=== PATIENT | female | born 2000 | race African-American/Black ===

== ENCOUNTER 2018-01-18 18:13 | Emergency (ER) | payer BC ==
[~2018-01-18] VITALS: Ht 167.6 cm; Wt 81.7 kg
[2018-01-18 18:52] LABS: URINE BILIRUBIN NEGATIVE (Negative); URINE BLOOD 1+ (Negative); URINE CLARITY CLEAR; URINE COLOR YELLOW; URINE GLUCOSE-RANDOM* NEGATIVE (Negative); URINE KETONES 1+ (Negative); URINE LEUKOCYTES-REFLEX NEGATIVE (Negative); URINE NITRITE-REFLEX NEGATIVE (Negative); URINE PROTEIN (DIPSTICK) NEGATIVE (Negative); URINE SPECIFIC GRAVITY >= 1.030 (1.005-1.035); URINE UROBILINOGEN 0.2 E.U./dl (0.2-1.0)
[2018-01-18 18:56] LABS: ABSOLUTE NEUTROPHILS 11.5 thou/uL (1.4-8.2); BASOPHILS 0.2 % (0.0-2.0); HEMATOCRIT 37.3 % (37.0-47.0); HEMOGLOBIN 11.8 gm/dL (12.0-15.0); LYMPHOCYTES 12.6 % (24.0-44.0); MCH 25.7 pg (26.0-34.0); MCHC 31.7 g/dL (28.0-37.0); MCV 81.1 fL (80.0-100.0); PLATELET COUNT 305 thou/uL (150-400); POLYS 83.2 % (36.0-66.0); RDW 14.7 % (10.5-14.5); WBC 13.8 thou/uL (4.0-11.0)
[2018-01-18 19:03] LABS: BACTERIA-REFLEX None Seen /HPF (None Seen); CASTS None Seen /LPF (None Seen); CRYSTALS None Seen /LPF (None Seen); MUCUS 4-6 Moderate strn/LPF (None Seen); SQUAMOUS 0-3 Few /LPF (0-3); URINE RBC 3-10 Few /HPF (0-2); URINE WBC-REFLEX 0-5 Rare /HPF (0-5)
[2018-01-18 19:05] LABS: CALCIUM 9.1 mg/dL (8.5-10.1); CREATININE 1.2 mg/dL (0.6-1.0); POTASSIUM 3.7 mmol/L (3.5-5.1)
[2018-01-18 19:11] LABS: TOTAL BILIRUBIN 0.4 mg/dL (<0.1-1.0); TOTAL PROTEIN 8.4 g/dL (6.4-8.2)
[2018-01-18] MEDS ORDERED: NORCO 5-325 TA1 EACH PO (21:13)
[2018-01-18] MEDS ORDERED: FLOMAX0.4 MG PO (21:13)
[2018-01-18] MEDS ORDERED: ONDANSETRON HCL4 M2 PO (21:13)
== END 2018-01-18 21:41 | disposition home or self-care (01) ==
LOC: ER 18:13
PROVIDERS: Emergency Medicine
DX: N20.1 Calculus of ureter (principal)

== ENCOUNTER 2019-03-24 21:37 | Emergency (ER) | payer BC ==
[~2019-03-24] VITALS: Ht 167.6 cm; Wt 72.6 kg
[~2019-03-24 21:37] MED LIST: FLOMAX0.4 MG PO; NORCO 5-325 TA1 EACH PO; ONDANSETRON HCL4 M2 PO
[2019-03-24 21:39] VITALS: BP 126/76
[2019-03-24] MEDS ORDERED: MOBIC15 MG PO (23:05)
[2019-03-24] MEDS ORDERED: VALIUM5 MG PO (23:05)
== END 2019-03-24 23:19 | disposition home or self-care (01) ==
LOC: ER 21:37
DX: S16.1XXA Strain of muscle, fascia and tendon at neck level, initial encounter (principal); J45.909 Unspecified asthma, uncomplicated; V49.49XA Driver injured in collision with other motor vehicles in traffic accident, initial encounter; Y93.89 Activity, other specified; Y92.89 Other specified places as the place of occurrence of the external cause; Y99.8 Other external cause status

== ENCOUNTER 2019-09-13 11:09 | Emergency (ER) | payer BC ==
[~2019-09-13] VITALS: Ht 167.6 cm; Wt 79.4 kg
[~2019-09-13 11:09] MED LIST changes: +MOBIC15 MG PO; +VALIUM5 MG PO
[2019-09-13 11:42] LABS: ABSOLUTE NEUTROPHILS 9.4 thou/uL (1.4-8.2); BASOPHILS 0.2 % (0.0-2.0); HEMATOCRIT 37.1 % (37.0-47.0); HEMOGLOBIN 11.7 gm/dL (12.0-15.0); LYMPHOCYTES 11.4 % (24.0-44.0); MCH 25.9 pg (26.0-34.0); MCHC 31.4 g/dL (28.0-37.0); MCV 82.5 fL (80.0-100.0); PLATELET COUNT 309 thou/uL (150-400); POLYS 84.4 % (36.0-66.0); RDW 14.7 % (10.5-14.5); WBC 11.2 thou/uL (4.0-11.0)
[2019-09-13 11:44] LABS: URINE BILIRUBIN NEGATIVE (Negative); URINE BLOOD 3+ (Negative); URINE GLUCOSE-RANDOM* NEGATIVE (Negative); URINE KETONES NEGATIVE (Negative); URINE LEUKOCYTES-REFLEX NEGATIVE (Negative); URINE NITRITE-REFLEX NEGATIVE (Negative); URINE PROTEIN (DIPSTICK) NEGATIVE (Negative); URINE SPECIFIC GRAVITY 1.025 (1.005-1.035); URINE UROBILINOGEN 0.2 E.U./dl (0.2-1.0)
[2019-09-13 11:46] LABS: URINE CLARITY HAZY; URINE COLOR LT RED
[2019-09-13 11:54] LABS: CALCIUM 9.7 mg/dL (8.5-10.1); POTASSIUM 3.6 mmol/L (3.5-5.1)
[2019-09-13 12:00] LABS: ALBUMIN 3.8 g/dL (3.4-5.0); TOTAL BILIRUBIN 0.3 mg/dL (<0.1-1.0); TOTAL PROTEIN 8.1 g/dL (6.4-8.2)
[2019-09-13 12:00] LABS: BACTERIA-REFLEX 1-9 Few /HPF (None Seen); CASTS None Seen /LPF (None Seen); CRYSTALS None Seen /LPF (None Seen); SQUAMOUS 0-3 Few /LPF (0-3); URINE RBC >20 Many /HPF (0-2); URINE WBC-REFLEX 0-5 Rare /HPF (0-5)
[2019-09-13] MEDS ORDERED: KEFLEX500 M1 PO (13:48)
[2019-09-13] MEDS ORDERED: NORCO 5-325 TA1 EAC1 PO (13:48)
[2019-09-13] MEDS ORDERED: FLOMAX0.4 MG PO (13:48)
[2019-09-13] MEDS ORDERED: TORADOL 10 MG T10 MG PO (13:48)
[2019-09-13 14:13] VITALS: BP 113/61
[2019-09-13] MEDS ORDERED: ONDANSETRON HCL4 M2 PO (14:17)
== END 2019-09-13 14:13 | disposition home or self-care (01) ==
LOC: ER 11:09
PROVIDERS: Emergency Medicine
DX: N20.0 Calculus of kidney (principal); R10.31 Right lower quadrant pain; R11.2 Nausea with vomiting, unspecified; J45.909 Unspecified asthma, uncomplicated

== ENCOUNTER 2021-02-07 22:05 | Emergency (ER) | payer BC ==
[~2021-02-07] VITALS: Ht 167.6 cm; Wt 86.2 kg
[~2021-02-07 22:05] MED LIST changes: +KEFLEX500 M1 PO; +NORCO 5-325 TA1 EAC1 PO; +TORADOL 10 MG T10 MG PO
[2021-02-07] MEDS ORDERED: XULANE PATCH1 EACH TOP (22:32)
[2021-02-07] MEDS ORDERED: PEPCID20 MG PO (23:21)
[2021-02-07] MEDS ORDERED: DIPHENHIST50 MG PO (23:21)
[2021-02-07] MEDS ORDERED: PREDNISONE 20 M20 MG PO (23:21)
[2021-02-07 23:29] VITALS: BP 125/82
== END 2021-02-07 23:31 | disposition home or self-care (01) ==
LOC: ER 22:05
DX: L27.0 Generalized skin eruption due to drugs and medicaments taken internally (principal); T50.B95A Adverse effect of other viral vaccines, initial encounter; J45.909 Unspecified asthma, uncomplicated; Z79.899 Other long term (current) drug therapy; Y92.89 Other specified places as the place of occurrence of the external cause

== ENCOUNTER 2021-11-05 12:23 | Emergency (ER) | payer BC ==
[~2021-11-05] VITALS: Ht 167.6 cm; Wt 84.4 kg
[~2021-11-05 12:23] MED LIST changes: +DIPHENHIST50 MG PO; +PEPCID20 MG PO; +PREDNISONE 20 M20 MG PO; +XULANE PATCH1 EACH TOP
[2021-11-05 12:33] VITALS: BP 135/92
--- NOTE | 2021-11-05 16:00 | EKG ---
[address] [address] ELECTROCARDIOGRAM REPORT Name: MESAANGELIA Room #: [facility]AJennifer#: [id number] Admission: 11/05/21 Attend Phys: Discharge: 11/05/21 Date of : 89 Report #: [id number] 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
== END 2021-11-05 15:01 | disposition home or self-care (01) ==
LOC: ER 12:23
DX: J02.9 Acute pharyngitis, unspecified (principal); Z20.822 Contact with and (suspected) exposure to COVID-19; R05.9 Cough, unspecified; J45.909 Unspecified asthma, uncomplicated; Z79.899 Other long term (current) drug therapy